=== PATIENT | male | born 1960 | race Caucasian/White ===

== ENCOUNTER 2023-09-19 08:47 | Outpatient (OUT) | payer OTHER, SELFPAY ==
--- NOTE | 2023-09-19 08:51 | US_ITS ---
[address] [address] Patient Name: EVERTON DAHL MRN: [id number] date: 1960 Sex: M Assigned Patient Location: US Current Patient Location: Accession/Order Number: [id number] Exam Date: 09/19/2023 09:00 Report Date: 09/19/2023 09:24 At the request of: GAIL FINNEGAN Procedure: US abdominal aortic aneurysm EXAMINATION: US abdominal aortic aneurysm HISTORY: Screening For Abdominal Aortic Aneurysm Z13.6 COMPARISON: No relevant comparison available. TECHNIQUE: Ultrasound examination of the retroperitoneal area was performed, with a focused evaluation of the abdominal aorta. FINDINGS: Proximal aorta: 1.7 x 1.4 cm Mid aorta: 2.0 x 2.5 cm Distal aorta: 2.4 x 1.8 cm Right common iliac artery: 1.0 x 1.1 cm Left common iliac artery: 1.1 x 1.3 cm Moderate soft and calcific atherosclerotic plaque US/US abdominal aortic aneurysm IMPRESSION: Ectasia of the mid abdominal aorta measuring up to 2.0 x 2.5 cm with moderate atherosclerotic plaque Electronically authenticated by: ANIBAL BERNARDO Date: 09/19/2023 09:24
== END 2023-09-19 08:48 | disposition home or self-care (01) ==
LOC: US 08:47
PROVIDERS: PCP Family Medicine; Visit Provider Internal Medicine Interventional Cardiology
DX: Z13.6 Encounter for screening for cardiovascular disorders (principal); I77.811 Abdominal aortic ectasia
CPT/HCPCS: 76775

== ENCOUNTER 2024-05-23 06:57 | Outpatient (OUT) | payer OTHER, SELFPAY ==
--- NOTE | 2024-05-23 | PCN_ITS ---
CARDIAC STRESS TEST Requesting Physician: Procedure Date: 05/23/2024 LEXISCAN EKG STRESS TEST INDICATIONS FOR THE TEST: Shortness of breath and palpitations. The procedure was discussed with the patient in detail including risks and benefits, and he was agreeable to proceed. Resting heart rate 57 beats per minute, resting blood pressure 134/78. 0.4 mg of IV Lexiscan was injected and the patient was monitored for a few minutes. Peak heart rate 99 beats per minute, which represents 63% of age predicted maximum heart rate and maximal blood pressure 144/78 mm/Hg. Patient did not have any chest pain or shortness of breath. Resting EKG showed normal sinus rhythm, heart rate 70 beats per minute, normal EKG. EKG throughout the test did not show any significant ST-T changes. I should note that non-specific T-wave abnormality noted in leads 3 and AVF. CONCLUSION: 1. Negative Lexiscan EKG stress test for ischemia. 2. The nuclear perfusion images result will be reported separately. MARCELD
--- NOTE | 2024-05-23 07:30 | CA_ITS ---
Patient Name: EVERTON DAHL MR#: [id number] : 1960 Exam Date: 05/23/2024 Ordering Doctor: DR GAIL FINNEGAN M.D. ECHOCARDIOGRAM REPORT PROCEDURE: CA ECHO DOPPLER COMPLETE INDICATIONS: Dyspnea, cardiovascular disease, cardiac stent, hypertension, smoker, COPD COMPARISON: None. DESCRIPTION: COMPLETE ECHOCARDIOGRAM Real-time transthoracic echocardiography with 2D, M-mode, spectral and color flow Doppler performed. QUALITY: Technical quality was good. LEFT VENTRICLE: Normal chamber size. Thickened septal wall. Mild left ventricular hypertrophy. LV EF: Global left ventricular systolic function is normal; visually estimated ejection fraction is 55 to 60%. Calculated left ventricular ejection fraction is 58%. No significant wall motion abnormalities. DIASTOLIC: Normal diastolic function. ATRIAL SEPTUM: Visually appears intact. LEFT ATRIUM: Normal chamber size. RIGHT ATRIUM: Normal chamber size. RIGHT VENTRICLE: Normal chamber size. Normal right ventricular systolic function. TRICUSPID VALVE: Normal mobility and thickness. No stenosis with trivial regurgitation. Doppler studies reveal mildly (35-45) elevated right sided pressures. RVSP 36 mmHg MITRAL VALVE: Normal mobility and thickness. No evidence of mitral valve stenosis. There is no mitral annular calcification. Trivial mitral regurgitation. AORTIC VALVE: Normal trileaflet appearance. No visible sclerosis. Normal leaflet mobility. No evidence of aortic valve stenosis. Trivial aortic regurgitation. AORTIC ROOT: Normal diameter and appearance. Ascending aorta is normal in size. PULMONIC VALVE: Normal thickness and mobility. No stenosis. Trivial regurgitation. PERICARDIUM: No evidence of pericardial effusion. IVC: Collapses with inspirations. CONCLUSION: 1. Global left ventricular systolic function is normal; visually estimated ejection fraction is 55 to 60% 2. Mild left ventricular hypertrophy 3. Normal right ventricular size and systolic function 4. Normal diastolic function 5. The left atrium is normal in size 6. No significant valvular abnormalities Adult Echocardiography Procedure Report Left Ventricle LVEDD (3.7 - 5.6 cm): 4.30 cm LVESD (2.2 - 4.0 cm): 3.17 cm LVIVS thickness (0.6 - 1.2 cm): 1.38 cm LVPW thickness (0.5 - 1.0 cm): 1.15 cm e': 0.12 m/s E - e': 4.05 LVOT Max Gradient: 2.21 mm[Hg] LVOT Area (cm2): 0.74 m/s Peak Velocity (LVOT): 0.74 m/s Mean Velocity (LVOT): 0.48 m/s LVOT Diameter 2.37 cm Left Atrium LA Volume Index (2D A2C): 36.12 ml/m2 Left Atrium Systolic Dimension: 3.37 cm Mitral Valve MV E to A Ratio: 0.83 Mitral Valve A-Wave Peak Velocity: 0.60 m/s Mitral Valve E-Wave Peak Velocity: 0.50 m/s Right Ventricle Aorta AO Root Diam: 3.63 cm Ascending Ao Diam: 3.43 cm Aortic Valve AoV Area (Peak Jemal): 3.14 cm2, 3.14 cm2 AoV Area (VTI): 3.66 cm2, 3.66 cm2 Peak Velocity(Antegrade Flow): 1.04 m/s Peak Gradient(Antegrade Flow): 4.33 mm[Hg] Mean Velocity(Antegrade Flow): 0.67 m/s Mean Gradient(Antegrade Flow): 2.06 mm[Hg] Velocity Time Integral: 21.87 cm Tricuspid Valve Peak Velocity (Regurgitant Flow): 2.86 m/s, 2.42 m/s Pulmonic Valve Mean Gradient: 1.64 mm[Hg] Mean Velocity: 0.60 m/s Peak Velocity: 0.83 m/s, 0.90 m/s Peak Gradient: 3.22 mm[Hg], 2.77 mm[Hg] Right Atrium Right Atrium Systolic Pressure: 41.99 ml, 41.99 ml Dictated by: Avis Michaels M.D. on 05/23/2024 at 11:54 Approved by: Avis Michaels M.D. on 05/23/2024 at 11:57
--- NOTE | 2024-05-23 08:10 | NM_ITS ---
Patient Name: EVERTON DAHL MR#: [id number] : 1960 Exam Date: 05/23/2024 Ordering Doctor: DR GAIL FINNEGAN M.D. RADIOLOGY REPORT PROCEDURE: NM DEYSI PERF SPECT REST STR COMPARISON: None. INDICATIONS: SHORTNESS OF BREATH, CORONARY ARTERY DISEASE TECHNIQUE: Exam Description: Rest/Stress one day protocol gated SPECT Rest Imagin.1 mCi Tc-99m Cardiolite IV on 05/23/2024 Stress Imaging 30.6 mCi Tc-99m Cardiolite IV on 05/23/2024 Exercise Protocol: 0.4 mg Lexiscan given IV Heart Rate (bpm): Rest: 57 Max: 99 PMHR: 63 Blood Pressure: Rest: 134/78 Max: 144/78 Symptoms: Rest and peak stress ECG findings were pending and the exercise portion of the study was pending per attending physician . For more details please see separate cardiac stress test report. FINDINGS: QUALITY OF STUDY: Good PERFUSION DEFECT: None LOCATION: SIZE: SEVERITY: TYPE: WALL MOTION: Normal LV SIZE: LVEDV 105 mL. TID / TCD: 0.9 LVEF: Calculated EF 71%. SUMMARY: Normal Myocardial perfusion imaging study CONCLUSION: Normal myocardial perfusion study without evidence of ischemia or infarct Normal left ventricle function, EF 71% No transient ischemic dilatation , TID 0.9 EKG stress test is reported sepeartely Dictated by: Roc Delaney MD on 05/23/2024 at 18:45 Approved by: Roc Delaney MD on 05/23/2024 at 18:57
[2024-05-23] MEDS: REGADENOSON 0.4 MG/5 ML SYRINGE IV (10:26)
--- NOTE | 2024-05-23 10:26 | PC.NURSE ---
Nursing Note Cardiac Stress Test Reviewed: Medication, allergies and patient history reviewed. Stress Test: [x ] Patient tolerated stress test well. [ ] Patient unable to tolerate walking on treadmill. Switched to Lexiscan stress test. [ x] No chest pain noted per patient [ ] Chest pain that resolved prior to leaving stress lab. [ x] No dyspnea noted. [ ] Dyspnea that resolved prior to leaving stress lab. [ x] Patient left stress lab asymptomatic and hemodynamically stable. [ ] Patient taken to the Emergency Room due to non-resolving symptoms following stress test. [ ] Patient achieved target heart rate. [ ] Patient unable to achieve target heart rate. [ ] Aminophylline administered as reversal agent to Lexiscan (Regadenoson). [ ] Nitro administered. Nursing Comments:Pt had Lexiscan test done and tolerated well. Pt had no CP and nonsymptomatic when he left lab. Pt ambulated to cafeteria for breakfast prior to second set of images.
== END 2024-05-23 06:58 | disposition home or self-care (01) ==
LOC: CARD 06:58
PROVIDERS: PCP Family Medicine; Visit Provider Internal Medicine Interventional Cardiology
DX: I25.10 Atherosclerotic heart disease of native coronary artery without angina pectoris (principal); R06.02 Shortness of breath
CPT/HCPCS: 78452; 93017; 93306; A9500; J2785

== ENCOUNTER 2024-08-01 07:01 | Outpatient (RCR) | payer OTHER, SELFPAY ==
--- NOTE | 2024-05-31 07:09 | CR1_ITS ---
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
--- NOTE | 2024-06-04 12:40 | CR1_ITS ---
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
--- NOTE | 2024-06-27 15:12 | CR1_ITS ---
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 Electronically Signed On 07-04-2024 11:25:25 EDT by Frandy Pemberton
--- NOTE | 2024-07-26 10:52 | CR1_ITS ---
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 Order Number: [id number] Jase MD: Frandy Pemberton Interpretive Statements Okay to continue with outlined treatment plan. Electronically Signed On 07-26-2024 14:35:56 EDT by Frandy Pemberton
== END 2024-08-02 11:27 | disposition home or self-care (01) ==
LOC: CR 07:01
PROVIDERS: PCP Family Medicine; Visit Provider Internal Medicine Interventional Cardiology
DX: I20.89 Other forms of angina pectoris (principal)
CPT/HCPCS: 93798